=== PATIENT | male | born 1985 | race Caucasian/White ===

== ENCOUNTER 2016-10-14 18:26 | Emergency (ER) | payer SELFPAY ==
--- NOTE | 2016-10-15 23:16 | ER ---
ADMIT: 10/14/2016 RM/LOC: ER [facility] MR#: [id number] [facility] [address] [place] [id number] [place] [address] Emergency Room Report SEX: M AGE: 31 : 1985 DATE: 10/14/2016 ADDENDUM: CHIEF COMPLAINT: Congestion, nasal drainage, coughing up yellow snot. HISTORY OF PRESENT ILLNESS: The patient is an otherwise healthy 31-year-old male, comes in because he has had 2 days of the above mentioned symptoms. He has not had any fevers, but does feel tired overall. He has not had any nausea or vomiting. He did not get a flu shot this year and is not aware of anybody he has been around that has had similar symptoms. He is mainly here because he is concerned he is having yellow drainage from his nose. He denies any facial pain, not having any ear pain. PAST MEDICAL HISTORY: Negative. MEDICATIONS: None. ALLERGIES: NONE. SOCIAL HISTORY: Denies smoking, and he does occasionally use marijuana and drinks about a beer a day. PHYSICAL EXAMINATION: VITAL SIGNS: Stable. He does not have a fever. HEENT: Head is atraumatic. Pupils are equal, round, reactive to light. Posterior oropharynx is nonerythematous. TMs are normal bilaterally. Mucous membranes are not dry. He has no lymphadenopathy. HEART: Regular rate and rhythm. LUNGS: Clear to auscultation. ABDOMEN: Soft. SKIN: Warm and dry. MEDICAL DECISION MAKING: Based on my evaluation, I do believe the patient has a viral syndrome. He is nontoxic appearing. Plan at this time is to have him use [id number] medications including Mucinex, Sudafed, Tylenol, or Motrin as needed for any pain or fevers and drink plenty of fluids. He is also recommended to use Flonase or similar nasal steroid. He is to follow up with Dr. Garrett if not getting better in 1 week and return for any concerning symptoms. Brett Danielson MD/ chago JOB #: [id number] CC: Tad Palacios MD, Attending Physician Terry Garrett MD, Family Physician
== END 2016-10-14 19:36 | disposition home or self-care (01) ==
LOC: ER 18:26
DX: B34.9 Viral infection, unspecified (principal)